=== PATIENT | male | born 1995 | race Caucasian/White ===

== ENCOUNTER 2019-08-05 11:35 | Emergency (ER) | payer OTHER, MEDICAID ==
[~2019-08-05] VITALS: Ht 167.6 cm; Wt 81.6 kg
[2019-08-05 11:39] VITALS: BP 131/76
--- NOTE | 2019-08-05 11:49 | NUR ---
ED Nurse Note: PT CAME IN DUE TO RIGHT FOOT PAIN AFTER ACCIDENTALLY KICKING A SIDE WALK CURB LAST NIGHT. PAIN MORE SEVERE WHEN WALKING. AAO X4 AND AMBULATORY.
--- NOTE | 2019-08-05 12:38 | Emergency Room Report ---
History of Present Illness General Chief Complaint: Lower Extremity Injury Source: Patient Present Illness HPI Is a 23-year-old male who presents after increased right lower extremity pain. Patient had recently injured his foot after kicking a curb while attempting to kick a soccer ball. Patient reports having some pain initially however this had worsened over time. Reports having pain to the foot. He denies any ankle pain. He denies a prior injuries. Allergies: Coded Allergies: No Known Allergies (Unverified , 08/05/19) Patient History Reviewed Nursing Documentation: PMH: Agreed; PSxH: Agreed Nursing Documentation-PMH Past Medical History: No Stated History Review of Systems All Other Systems: negative except mentioned in HPI Physical Exam Vital Signs Date Time Temp Pulse Resp B/P (MAP) Pulse Ox O2 Delivery O2 Flow Rate FiO2 08/05/19 11:39 97.9 84 16 131/76 (94) 95 Room Air General Appearance: well appearing, no apparent distress, alert, GCS 15, non- toxic Head: normocephalic, atraumatic ENT: hearing grossly normal, normal voice Neck: full range of motion, supple Respiratory: lungs clear, no respiratory distress, speaking full sentences Gastrointestinal: normal inspection Musculoskeletal: normal inspection, no calf tenderness Neurologic: alert, motor strength/tone normal, hearing dog trainer III-XII nml as tested, normal gait Psychiatric: normal inspection, judgement/insight normal, mood/affect normal Skin: normal inspection, no rash Medical Decision Making Diagnostic Impression: Primary Impression: Foot pain ER Course Patient presented for foot pain. Differential diagnosis includes not limited to fracture, contusion, sprain among others. Because of complexity of imaging studies were ordered. X-ray imaging showed no evidence of any definite fracture however given the patient's significant swelling who placed posterior splint. Patient is advised orthopedic follow-up. There is patient was advised to return if any worsening condition or other concerns. Advised to remain off work until injury to healed. This medical record is generated with [employer] email marketing assistant software. There may be some email marketing assistant discrepancies related to use of this software Last Vital Signs Date Time Temp Pulse Resp B/P (MAP) Pulse Ox O2 Delivery O2 Flow Rate FiO2 08/05/19 11:39 97.9 84 16 131/76 (94) 95 Room Air Status: improved Disposition: HOME, SELF-CARE Condition: Stable Scripts Ibuprofen* (MOTRIN*) 600 Mg Tablet 600 MG ORAL Q8H PRN for For Pain, #30 TAB 0 Refills Prov: Renny Garcia MD 08/05/19 Acetaminophen* (ACETAMINOPHEN EXTRA STRENGTH*) 500 Mg Tablet 500 MG ORAL Q8H PRN for Fever/Headache/Mild Pain, #30 TAB Prov: Renny Garcia MD 08/05/19 Renny Garcia MD Aug 05, 2019 12:38
[2019-08-05] MEDS ORDERED: IBUPROFEN600 MG ORAL (13:05)
[2019-08-05] MEDS ORDERED: ACETAMINOPHEN500 M3 ORAL (13:05)
--- NOTE | 2019-08-05 14:09 | NUR ---
ED Nurse Note: Patient is being medically discharged from medical care. D/C instruction given. Crutches given and patient demonstrated proper use of it. Offered written instruction on how to use crutches, patient states he used crutches before. Patient leaving the hospital with friend in private vehicle.
--- NOTE | 2019-08-06 14:21 | Diagnostic Imaging Report ---
Indication: Foot Pain Comparison: None Findings: 3 views of the right foot were obtained. No acute fractures, malalignment, erosions or periostitis are identified. Impression: No acute findings.
== END 2019-08-05 14:07 | disposition home or self-care (01) ==
LOC: EMR 12:46
DX: M79.671 Pain in right foot (principal)
CPT/HCPCS: 99283